=== PATIENT | female | born 1970 | race Caucasian/White ===

== ENCOUNTER 2019-10-01 01:27 | Day surgery (SDC) | payer BC, SELFPAY ==
[2019-09-17 14:16] VITALS: BMI 32.9
[2019-10-01] VITALS (9 sets, daily range): BP systolic 135–155; BP diastolic 75–87; PULSE 66–86; RESP 12–20; TEMP 36.7–37; O2SAT 94–97
--- NOTE | 2019-10-01 07:25 | WPDHPUPDATE1 ---
History and Physical Update Update Date/Time: 10/01/19 07:25 History and Physical has been reviewed, including an updated exam of the patient. There are NO changes in the patient's condition. Risks, benefits, and alternatives have been discussed and questions answered. Patient agrees to proceed with procedure.
--- NOTE | 2019-10-01 08:08 | WPDANESEPPF ---
Anes - Initial Pre Proc Eval Procedure: Operation Date: 10/01/19 09:00 Proposed Procedures p Right Knee Arthroscopy,Debride Meniscus, Synovectomy, Chondroplasty, Proceed As Indicated - Gerry Garduno MD Date/Time: 10/01/19 08:08 Surgeon: Grery Garduno MD Pre Op Diagnosis: Right Medial Meniscus Tear,Chondromalatia,Synoviti Patient Data Age: 49 Gender: F Height: 5 ft 6 in Weight: 92.53 kg Allergies Allergy/AdvReac Type Severity Reaction Status Date / Time No Known Allergies Allergy Verified 09/25/19 08:50 Home Medications Medication Instructions Recorded Confirmed Type Vitamin D3 1 tablet PO DAILY 09/17/19 09/17/19 History multivitamin 1 tablet PO DAILY 09/17/19 09/17/19 History Patient hx anesthesia problems: none Family hx anesthesia problems: none PMFSH Past Medical History Medical History Medial meniscus tear Patella-femoral syndrome Right knee pain Family History Family History Unknown Diabetes mellitus Hypertension Social History Social History Smoking status: Never smoker Gender identity (if verbalized by the patient): Female Anes - Eval Final PreProcedure Day of Procedure 10/01/19 08:08 Patient weight: obese ASA classification: II Informed Consent: The patient's anesthetic plan and its attendant risks and benefits were discussed with the patient/family/POA. Questions were solicited and answers provided to the satisfaction of the patient/family/POA.
--- NOTE | 2019-10-01 08:09 | WPDANESEPPF ---
Anes - Initial Pre Proc Eval Procedure: Operation Date: 10/01/19 09:00 Proposed Procedures p Right Knee Arthroscopy,Debride Meniscus, Synovectomy, Chondroplasty, Proceed As Indicated - Gerry Garduno MD Date/Time: 10/01/19 08:09 Surgeon: Gerry Garduno MD Pre Op Diagnosis: Right Medial Meniscus Tear,Chondromalatia,Synoviti Patient Data Age: 49 Gender: F Height: 1.68 m Weight: 92.53 kg Allergies Allergy/AdvReac Type Severity Reaction Status Date / Time No Known Allergies Allergy Verified 09/25/19 08:50 Home Medications Medication Instructions Recorded Confirmed Type Vitamin D3 1 tablet PO DAILY 09/17/19 09/17/19 History multivitamin 1 tablet PO DAILY 09/17/19 09/17/19 History Patient hx anesthesia problems: none Family hx anesthesia problems: none PMFSH Past Medical History Medical History (Updated 10/01/19 @ 08:10 by Wing Trevino MD) Medial meniscus tear Obesity Patella-femoral syndrome Right knee pain Family History Family History Unknown Diabetes mellitus Hypertension Social History Social History Smoking status: Never smoker Gender identity (if verbalized by the patient): Female Anes - Eval Final PreProcedure Day of Procedure 10/01/19 08:09 Patient weight: obese Heart: regular rate and rhythm Lungs: clear to auscultation and normal air movement Airway: Mallampati scale class II Neurological: alert and oriented Last oral intake: >/= 8 hours ASA classification: II Emergent: no Anesthetic plan: proceed Anesthesia type and monitoring: general LMA Informed Consent: The patient's anesthetic plan and its attendant risks and benefits were discussed with the patient/family/POA. Questions were solicited and answers provided to the satisfaction of the patient/family/POA.
[2019-10-01] MEDS: LACTATED RINGERS 1,000 ML 30 ML IV CONT ×2 (08:18→12:01)
[2019-10-01] MEDS: IBUPROFEN IV 800 MG/200 ML 800 MG/200 ML BAG 400 MG IVPB (08:20)
[2019-10-01] MEDS: ceFAZolin 2 GM/D5W 50 ML 2 GM/50 ML BAG IVPB (09:23)
[2019-10-01] MEDS: ONDANSETRON INJ 4 MG/2 ML VIAL IV PUSH (10:59)
--- NOTE | 2019-10-01 11:13 | PM.PROC ---
Procedure Note - Detailed Date of procedure: 10/01/19 Pre-op diagnosis: Right Medial Meniscus Tear,Chondromalatia,Synoviti Right knee medial and lateral meniscus tear, synovitis, chondromalacia Post-op diagnosis: same Procedure performed: Right knee arthroscopy with partial meniscectomy of medial and lateral meniscus, synovectomy, chondroplasty patellofemoral, lateral and medial compartments. Description of procedure: Indications: 49-year-old woman with severe right knee pain, worse with weight-bearing and activity. Unrelieved with home exercises, physical therapy, knee brace, injections. MRI demonstrates medial and lateral meniscus tear as well as degenerative changes, effusion, popliteal cyst and synovitis. Informed consent given by patient. Operative extremity marked in preoperative holding area. Patient received intravenous antibiotics. Patient brought to operating room and underwent general anesthetic by anesthesia team. Positioned supine on operating room table. Right leg placed into a posterior thigh leg [place]. Foot of the table dropped to 90? and left leg padded out of the field. Time-out performed confirming patient, site of surgery and plan. Right knee prepped and draped in usual sterile surgical fashion using ChloraPrep skin solution. Standard arthroscopic portals made by using a 11 blade knife for the anterior lateral portal 1st. Capsule penetrated bluntly. Camera and inflow started. The below operative findings noted. Intra-articular visualization used to position the anterior medial portal using 22 gauge spinal needle. A 11 blade knife used for the skin and blunt penetration of the capsule. 4.7 millimeter arthroscopic shaver introduced and partial medial meniscectomy of the loose and torn portion performed. Shaver then positioned in the lateral compartment and partial lateral meniscectomy performed. Edge of meniscus completed with arthroscopic Wand. Shaver introduced into the posterior capsule and the popliteal cyst able to be evacuated with suction. Arthroscopic Wand used to perform chondroplasty of the patellofemoral articulation and the medial and lateral femoral condyle. Shaver reintroduced and a synovectomy performed of the anterior fat pad and extensive synovium as well as medial and lateral plica. Bleeding points coagulated with Wand. Knee inspected, no loose pieces noted. 1 liter of irrigant infused and suction out. Arthroscopic cannulas removed. Skin closed with 4 nylon interrupted suture. Local anesthetic with 0.25% Marcaine. Sterile dressing applied. Patient awoken from anesthesia, extubated and taken to recovery room in stable condition. All sponge needle and instrument counts correct at the end of the case. Anesthesia: GLMA Surgeon: Gerry Garduno MD Estimated blood loss (mL): 5 Drains: No Packing: No Pathology: none sent Complications: None Condition: stable Disposition: PACU Findings: Right knee with complex tear posterior horn medial meniscus extending to the medial root. Complex tear posterior horn lateral meniscus. ACL/PCL intact. Extensive synovitis anterior medial anterolateral compartments, peripatellar and suprapatellar compartments. Grade 3 chondromalacia medial patellar facet, grade 2 chondromalacia lateral patellar facet. Grade 3 chondromalacia femoral trochlea. Grade 3 chondromalacia medial femoral condyle central portion. Grade 2 chondromalacia lateral femoral condyle.
[2019-10-01] MEDS: SCOPOLAMINE 1.5 MG PATCH TRANSDERM (11:27)
[2019-10-01] MEDS: HALOPERIDOL LACTATE 5 MG/ML VIAL 1 MG IV PUSH (11:40)
--- NOTE | 2019-10-01 11:52 | SUR.PHASEI ---
SPOUSE JOE UPDATED RE:PT CONDITION
== END 2019-10-01 13:50 | disposition home or self-care (01) ==
PROVIDERS: Visit Provider Orthopaedic Surgery
PROC: (CPT 29870; principal; 2019-10-01 09:00)
DX: M23.331 Other meniscus derangements, other medial meniscus, right knee (principal); M23.361 Other meniscus derangements, other lateral meniscus, right knee; M94.261 Chondromalacia, right knee; M65.861 Other synovitis and tenosynovitis, right lower leg
CPT/HCPCS: 29880; A9270; J0360; J0690; J1100; J1630; J1741; J2250; J2405; J2704; J3010; J7120

== ENCOUNTER 2021-01-12 08:30 | Outpatient (CLI) | payer BC, SELFPAY ==
[2021-01-12 08:52] LABS: Basophils Percent Auto 0.7 % (0.2-1.2); Eosinophils Absolute Auto 0.2 K/mm3 (0-0.3); Eosinophils Percent Auto 4.3 % (0-4.4); Hematocrit 43.5 % (37.0-47.0); Hemoglobin 14.6 g/dL (12.0-15.0); Immature Granulocyte Absolute 0.01 K/mm3 (0.00-0.031); Immature Granulocyte Percent A 0.2 % (0-0.5); Lymphocytes Percent Auto 26.1 % (18.3-44.2); Mean Corpuscular HGB Conc 33.6 g/dl (32-36); Mean Corpuscular Volume 89.5 fl (80-100); Mean Platelet Volume 9.6 fl (7.4-10.4); Monocytes Absolute Auto 0.4 K/mm3 (0.1-0.6); Monocytes Percent Auto 7.6 % (2.6-8.5); Neutrophils Absolute Auto 3.3 K/mm3 (1.3-6.7); Neutrophils Percent Auto 61.1 % (45.5-73.1); Platelet Count Result 186 k/mm3 (150-375); Red Blood Count 4.86 M/mm3 (4.2-5.4); Red Cell Distribution Width 12.7 % (11.5-14.5); White Blood Count 5.4 K/mm3 (4.5-10.0)
[2021-01-12 08:55] LABS: Add Urine Microscopic? NO; Appearance Urine Clear (Clear); Bilirubin Urine Negative (Negative); Blood Urine Negative (Negative); Color Urine Yellow (Yellow); Glucose Urine UA Negative (Negative); Ketones Urine Negative (Negative); Leukocyte Esterase Ur Negative LEU/UL (NEGATIVE); Nitrate Urine Negative (Negative); Protein Urine Negative (Negative); Specific Grav Ur 1.009 (1.001-1.035); Urobilinogen Urine Negative mg/dL (<2.0)
[2021-01-12 09:06] LABS: Alanine Aminotransferase 15 U/L (4-35); Albumin Level 4.4 g/dL (3.5-5.1); Alkaline Phosphatase 73 U/L (38-126); Anion Gap 5 mmol/L (8-16); Aspartate Amino Transferase 26 U/L (14-36); Bilirubin,Total 0.5 mg/dL (0.2-1.3); Blood Urea Nitrogen 12 mg/dL (7-17); Calcium 9.3 mg/dL (8.4-10.2); Carbon Dioxide 30 mmol/L (22-30); Chloride 105 mmol/L (98-107); Cholesterol 117 mg/dL (0-200); Estimated Glomerular Filt Rate > 60; Glucose 90 mg/dL (65-105); HDL Direct 59 mg/dL; Potassium 3.9 mmol/L (3.4-5.0); Sodium 140 mmol/L (137-145); Triglycerides 58 mg/dL (<150)
[2021-01-12 09:13] LABS: LDL Cholesterol Direct 49 mg/dL
[2021-01-12 09:34] LABS: Vitamin D 25 Hydroxy 68.4 ng/mL
[2021-01-12 09:52] LABS: Hemoglobin A1C 5.3 % (<5.7)
[2021-01-12 10:09] LABS: Folic Acid > 20.0 ng/mL (2.76->20)
== END 2021-01-12 08:31 | disposition home or self-care (01) ==
PROVIDERS: PCP Nurse Practitioner Family; Visit Provider Nurse Practitioner Family
DX: Z00.00 Encounter for general adult medical examination without abnormal findings (principal); E55.9 Vitamin D deficiency, unspecified; Z68.32 Body mass index [BMI] 32.0-32.9, adult
CPT/HCPCS: 36415; 80053; 80061; 81003; 82306; 82607; 82746; 83036; 84443; 85025

== ENCOUNTER → 2021-07-13 09:57 | Outpatient (CLI) | payer BC, SELFPAY ==
--- NOTE | ~2021-07-13 | MM_ITS ---
EXAMINATION: MM screening belinda BI w tawny HISTORY: Screening mammogram TECHNIQUE: Craniocaudal and mediolateral oblique 3-D tomosynthesis images were obtained and synthetic 2-D images were generated. CAD analysis was submitted and interpreted. COMPARISON: No prior mammogram is available for comparison at this institution. BREAST PARENCHYMAL COMPOSITION: The breasts are heterogeneously dense, which may obscure small masses . FINDINGS: RIGHT BREAST: There is possible architectural distortion in the middle third of the upper outer quadr ant of the breast. LEFT BREAST: There is no evidence of suspicious mass, calcification, or architectural distortion to s uggest malignancy. IMPRESSION: 1. Possible right breast architectural distortion which may represent the patient's baseline however no comparison is currently available. 2. Comparison with prior mammograms is necessary. BI-RADS Category 0: Incomplete: Needs comparison with prior mammograms. Reviewed, dictated and finalized at location A. INFRASTRUCTURE ARCHITECT IMPRESSION: 1. Possible right breast architectural distortion which may represent the patie nt's baseline however no comparison is currently available. 2. Comparison with prior mammograms is necessary. BI-RADS Category 0: Incomplete: Needs comparison with prior mammograms.
== END ==
PROVIDERS: PCP Nurse Practitioner Family; Visit Provider Nurse Practitioner Family
DX: Z12.31 Encounter for screening mammogram for malignant neoplasm of breast (principal); R92.8 Other abnormal and inconclusive findings on diagnostic imaging of breast
CPT/HCPCS: 77063; 77067

== ENCOUNTER 2022-09-13 08:14 | Outpatient (CLI) | payer BC, SELFPAY ==
[2022-09-13 08:33] LABS: Appearance Urine Clear (Clear); Bilirubin Urine Negative (Negative); Blood Urine Negative (Negative); Color Urine Yellow (Yellow); Glucose Urine UA Negative (Negative); Ketones Urine Negative (Negative); Leukocyte Esterase Ur Negative LEU/UL (NEGATIVE); Nitrate Urine Negative (Negative); Protein Urine Negative (Negative); Specific Grav Ur 1.015 (1.001-1.035); Urobilinogen Urine 0.2 mg/dL (<2.0)
[2022-09-13 08:34] LABS: Basophils Absolute Auto 0.1 K/mm3 (0.0-0.1); Basophils Percent Auto 1.6 % (0.2-1.2); Eosinophils Absolute Auto 0.3 K/mm3 (0-0.3); Eosinophils Percent Auto 6.9 % (0-4.4); Hematocrit 43.8 % (37.0-47.0); Hemoglobin 14.6 g/dL (12.0-15.0); Immature Granulocyte Absolute 0.01 K/mm3 (0.00-0.031); Immature Granulocyte Percent A 0.3 % (0-0.5); Lymphocytes Absolute Auto 1.56 K/mm3 (0.9-3.2); Lymphocytes Percent Auto 42.9 % (18.3-44.2); Mean Corpuscular HGB Conc 33.3 g/dl (32-36); Mean Corpuscular Hemoglobin 31.3 pg (26-34); Mean Corpuscular Volume 93.8 fl (80-100); Mean Platelet Volume 8.9 fl (7.4-10.4); Monocytes Absolute Auto 0.3 K/mm3 (0.1-0.6); Monocytes Percent Auto 7.4 % (2.6-8.5); Neutrophils Absolute Auto 1.5 K/mm3 (1.3-6.7); Neutrophils Percent Auto 40.9 % (45.5-73.1); Platelet Count Result 175 k/mm3 (150-375); Red Blood Count 4.67 M/mm3 (4.2-5.4); Red Cell Distribution Width 11.9 % (11.5-14.5); White Blood Count 3.6 K/mm3 (4.5-10.0)
[2022-09-13 08:35] LABS: Bacteria Urine Trace /hpf; Mucus Urine Rare /lpf; RBC Urine 0-2 /hpf (0-2); Squamous Epithelial Cell Urine Rare /hpf (Few); WBC Urine 0-3 /hpf (0-3)
[2022-09-13 08:39] LABS: Add Urine Microscopic? YES
[2022-09-13 08:57] LABS: Alanine Aminotransferase 16 U/L (6-35); Albumin Level 4.4 g/dL (3.5-5.1); Alkaline Phosphatase 69 U/L (38-126); Anion Gap 7 mmol/L (8-16); Aspartate Amino Transferase 26 U/L (14-36); Bilirubin,Total 0.5 mg/dL (0.2-1.3); Blood Urea Nitrogen 15 mg/dL (7-17); Carbon Dioxide 30 mmol/L (22-30); Chloride 103 mmol/L (98-107); Cholesterol 178 mg/dL (0-200); Estimated Glomerular Filt Rate > 60; Glucose 89 mg/dL (65-110); HDL Direct 85 mg/dL; Sodium 140 mmol/L (137-145); Triglycerides 56 mg/dL (<150)
[2022-09-13 09:12] LABS: LDL Cholesterol Direct 70 mg/dL
[2022-09-13 10:12] LABS: Folic Acid 17.7 ng/mL (2.76->20)
[2022-09-13 12:32] LABS: Vitamin D 25 Hydroxy 70.6 ng/mL
== END 2022-09-13 08:15 | disposition home or self-care (01) ==
LOC: ANHLAB 08:15
PROVIDERS: PCP Family Medicine; Visit Provider Nurse Practitioner Family
DX: Z00.00 Encounter for general adult medical examination without abnormal findings (principal); Z13.29 Encounter for screening for other suspected endocrine disorder; E55.9 Vitamin D deficiency, unspecified; Z13.0 Encounter for screening for diseases of the blood and blood-forming organs and certain disorders involving the immune mechanism; Z13.6 Encounter for screening for cardiovascular disorders
CPT/HCPCS: 36415; 80053; 80061; 81001; 82306; 82607; 82746; 84443; 85025

== ENCOUNTER → 2022-10-02 08:20 | Outpatient (CLI) | payer BC, SELFPAY ==
--- NOTE | ~2022-10-02 | US_ITS ---
EXAMINATION: US soft tissue LE LT DATE: 10/02/2022 08:34 INDICATION: Left lower limb pain and swelling. TECHNIQUE: Multiple grayscale and Doppler ultrasound images of the left lower limb were obtained. COMPARISON: None FINDINGS: There are patent varicose veins in the patient's area of concern in the medial left lower l eg. No abnormal mass. IMPRESSION: 1. Patent varicose veins in the patient's area of concern in the medial left lower leg. Reviewed, dictated and finalized at location A. INSURANCE AGENT IMPRESSION: 1. Patent varicose veins in the patient's area of concern in the medial left lo wer leg.
== END ==
PROVIDERS: PCP Nurse Practitioner Family; Visit Provider Nurse Practitioner Family
DX: M79.605 Pain in left leg (principal)
CPT/HCPCS: 76882

== ENCOUNTER 2022-10-16 08:14 | Outpatient (CLI) | payer BC, SELFPAY ==
[2022-10-16 08:47] LABS: Basophils Absolute Auto 0.1 K/mm3 (0.0-0.1); Basophils Percent Auto 1.5 % (0.2-1.2); Eosinophils Absolute Auto 0.2 K/mm3 (0-0.3); Eosinophils Percent Auto 5.2 % (0-4.4); Hematocrit 42.2 % (37.0-47.0); Hemoglobin 14.5 g/dL (12.0-15.0); Lymphocytes Absolute Auto 1.68 K/mm3 (0.9-3.2); Lymphocytes Percent Auto 41.4 % (18.3-44.2); Mean Corpuscular HGB Conc 34.4 g/dl (32-36); Mean Corpuscular Hemoglobin 31.2 pg (26-34); Mean Corpuscular Volume 90.8 fl (80-100); Mean Platelet Volume 8.7 fl (7.4-10.4); Monocytes Absolute Auto 0.3 K/mm3 (0.1-0.6); Monocytes Percent Auto 7.4 % (2.6-8.5); Neutrophils Absolute Auto 1.8 K/mm3 (1.3-6.7); Neutrophils Percent Auto 44.5 % (45.5-73.1); Platelet Count Result 183 k/mm3 (150-375); Red Blood Count 4.65 M/mm3 (4.2-5.4); Red Cell Distribution Width 11.7 % (11.5-14.5); White Blood Count 4.1 K/mm3 (4.5-10.0)
== END 2022-10-16 08:15 | disposition home or self-care (01) ==
PROVIDERS: PCP Nurse Practitioner Family; Visit Provider Nurse Practitioner Family
DX: D72.819 Decreased white blood cell count, unspecified (principal)
CPT/HCPCS: 36415; 85025

== ENCOUNTER → 2022-11-27 10:43 | Outpatient (CLI) | payer BC, SELFPAY ==
--- NOTE | ~2022-11-27 | MM_ITS ---
EXAMINATION: MM screening belinda BI w tawny HISTORY: Screening mammogram TECHNIQUE: Craniocaudal and mediolateral oblique 3-D tomosynthesis images were obtained and synthetic 2-D images were generated. CAD analysis was submitted and interpreted. COMPARISON: 07/13/2021, 12/24/2017, 01/13/2016 bilateral screening mammogram examinations BREAST PARENCHYMAL COMPOSITION: The breasts are heterogeneously dense, which may obscure small masses . FINDINGS: There is no evidence of suspicious mass, calcification, or architectural distortion to sugg est malignancy in either breast. There has been no suspicious interval change. IMPRESSION: 1. No mammographic evidence of malignancy. 2. Recommend routine screening mammography in one year. BI-RADS Category 1: Negative Reviewed, dictated and finalized at location A.
== END ==
PROVIDERS: PCP Nurse Practitioner Family; Visit Provider Nurse Practitioner Family
DX: Z12.31 Encounter for screening mammogram for malignant neoplasm of breast (principal)
CPT/HCPCS: 77063; 77067

== ENCOUNTER 2023-02-21 01:13 | Day surgery (SDC) | payer BC, SELFPAY ==
[2023-02-08 14:44] VITALS: BMI 26.2
--- NOTE | 2023-02-20 15:55 | PM.HPGS ---
History of Present Illness History of Present Illness Consent: Risks, benefits, and alternatives have been discussed and questions answered. Patient agrees to proceed with procedure. Chief complaint: neoplasm screening Narrative: Maryan Dorsey is a 52 year old female Referred for colon cancer screening. Review of Systems Review of Systems: All systems reviewed & are unremarkable except as noted in HPI and below PMFSH Past Medical History Medical History Bilateral knee pain BMI 25.0-25.9,adult BMI 32.0-32.9,adult Breast cancer screening Cat bite Colon cancer screening Elevated blood pressure reading without diagnosis of hypertension Encounter to establish care Medial meniscus tear Obesity Patella-femoral syndrome Right knee pain Tenderness of left lower extremity Vitamin D deficiency Surgical History Surgical History Hx of arthroscopic knee surgery Family History Family History Mother Hypertension Depression Father Diabetes mellitus Hypertension Thyroid disease Sibling Depression Grandparent Cancer Social History Social History Smoking status: Never smoker Alcohol intake: never Substance use: never Substance use type: does not use Living arrangements: with family Gender identity (if verbalized by the patient): Female Spiritual care concerns: No Meds Home Medications and Allergies Home Medications Medication Instructions Recorded Confirmed Type Vitamin D3 1 tablet PO DAILY 09/17/19 02/21/23 History multivitamin 1 tablet PO DAILY 09/17/19 02/21/23 History mecobalamin (vitamin B12) 1,000 1,000 mcg PO DAILY 02/08/23 02/21/23 History mcg chewable tablet Allergies Allergy/AdvReac Type Severity Reaction Status Date / Time No Known Allergies Allergy Verified 02/21/23 07:49 Exam Const: General: alert Orientation/consciousness: patient oriented x3 Resp: Auscultation: clear to auscultation bilaterally Cardio: Rhythm: regular rhythm GI: GI Palp: Yes Soft to palpation and No Tenderness to palpation present (GI) Neuro: General: patient oriented x3 Assessment and Plan Assessment and plan (1) Colon cancer screening: Code(s): Z12.11 - Encounter for screening for malignant neoplasm of colon Status: Acute Assessment and Plan: Colonoscopy with possible biopsy or polypectomy or cautery or injection of substances.
[2023-02-21 07:54] VITALS: BP 118/75; PULSE 65; RESP 16; TEMP 36.3; O2SAT 100
[2023-02-21] MEDS: LACTATED RINGERS 1,000 ML 150 ML IV CONT (08:12)
[2023-02-21 09:20] VITALS: BP 108/62; PULSE 57; RESP 18; O2SAT 100
[2023-02-21 09:30] VITALS: BP 103/61; PULSE 56; RESP 14; O2SAT 100
[2023-02-21 09:40] VITALS: BP 117/40; PULSE 51; RESP 19; O2SAT 100
== END 2023-02-21 09:46 | disposition home or self-care (01) ==
PROVIDERS: PCP Nurse Practitioner Family; Visit Provider Internal Medicine Gastroenterology
PROC: 0DJD8ZZ Inspection of Lower Intestinal Tract, Via Natural or Artificial Opening Endoscopic (ICD-10-PCS; CPT 45378; principal; 2023-02-21 09:00)
DX: Z12.11 Encounter for screening for malignant neoplasm of colon (principal); K57.30 Diverticulosis of large intestine without perforation or abscess without bleeding; E55.9 Vitamin D deficiency, unspecified
CPT/HCPCS: 45378; J2704; J7120

== ENCOUNTER 2024-02-11 07:45 | Outpatient (CLI) | payer BC, SELFPAY ==
[2024-02-11 08:33] LABS: Basophils Absolute Auto 0.1 K/mm3 (0.0-0.1); Basophils Percent Auto 1.6 % (0.2-1.2); Eosinophils Absolute Auto 0.3 K/mm3 (0-0.3); Eosinophils Percent Auto 9.1 % (0-4.4); Hematocrit 43.8 % (37.0-47.0); Hemoglobin 14.4 g/dL (12.0-15.0); Lymphocytes Absolute Auto 1.64 K/mm3 (0.9-3.2); Lymphocytes Percent Auto 43.7 % (18.3-44.2); Mean Corpuscular HGB Conc 32.9 g/dl (32-36); Mean Corpuscular Hemoglobin 31.1 pg (26-34); Mean Corpuscular Volume 94.6 fl (80-100); Mean Platelet Volume 9.6 fl (7.4-10.4); Monocytes Absolute Auto 0.3 K/mm3 (0.1-0.6); Monocytes Percent Auto 6.9 % (2.6-8.5); Neutrophils Absolute Auto 1.5 K/mm3 (1.3-6.7); Neutrophils Percent Auto 38.7 % (45.5-73.1); Platelet Count Result 192 k/mm3 (150-375); Red Blood Count 4.63 M/mm3 (4.2-5.4); Red Cell Distribution Width 11.9 % (11.5-14.5); White Blood Count 3.8 K/mm3 (4.5-10.0)
[2024-02-11 08:35] LABS: Appearance Urine Clear (Clear); Blood Urine Negative (Negative); Color Urine Yellow (Yellow); Glucose Urine UA Negative (Negative); Ketones Urine Negative (Negative); Protein Urine Negative (Negative); Specific Grav Ur 1.013 (1.001-1.035); pH Urine 6.5 (5.0-9.0)
[2024-02-11 08:36] LABS: Bilirubin Urine Negative (Negative); Leukocyte Esterase Ur Negative LEU/UL (Negative); Nitrate Urine Negative (Negative); Urobilinogen Urine 0.2 mg/dL (<2.0)
[2024-02-11 08:49] LABS: Alanine Aminotransferase 12 U/L (6-35); Albumin Level 4.4 g/dL (3.5-5.1); Alkaline Phosphatase 78 U/L (38-126); Anion Gap 5 mmol/L (4-12); Aspartate Amino Transferase 27 U/L (14-36); Bilirubin,Total 0.6 mg/dL (0.2-1.3); Blood Urea Nitrogen 22 mg/dL (7-17); Calcium 9.1 mg/dL (8.4-10.2); Carbon Dioxide 28 mmol/L (22-30); Chloride 105 mmol/L (98-107); Cholesterol 182 mg/dL (0-200); Estimated Glomerular Filt Rate > 60; Glucose 77 mg/dL (65-110); HDL Direct 94 mg/dL; Potassium 3.9 mmol/L (3.4-5.0); Sodium 138 mmol/L (137-145); Triglycerides 64 mg/dL (<150)
[2024-02-11 08:59] LABS: Add Urine Microscopic? NO
[2024-02-11 09:00] LABS: LDL Cholesterol Direct 77 mg/dL
[2024-02-11 09:41] LABS: Vitamin B12 > 1000.0 pg/mL (239-931)
== END 2024-02-11 07:46 | disposition home or self-care (01) ==
LOC: ANHLAB 07:47
PROVIDERS: PCP Nurse Practitioner Family; Visit Provider Nurse Practitioner Family
DX: Z00.00 Encounter for general adult medical examination without abnormal findings (principal); Z13.29 Encounter for screening for other suspected endocrine disorder; Z13.0 Encounter for screening for diseases of the blood and blood-forming organs and certain disorders involving the immune mechanism; E55.9 Vitamin D deficiency, unspecified; E53.8 Deficiency of other specified B group vitamins; Z13.6 Encounter for screening for cardiovascular disorders
CPT/HCPCS: 36415; 80053; 80061; 81003; 82306; 82607; 84443; 85025

== ENCOUNTER 2024-05-06 10:17 | Outpatient (CLI) | payer BC, SELFPAY ==
--- NOTE | ~2024-05-06 | MM_ITS ---
EXAMINATION: MM screening belinda BI w tawny HISTORY: Screening mammogram TECHNIQUE: Craniocaudal and mediolateral oblique 3-D tomosynthesis images were obtained and synthetic 2-D images were generated. CAD analysis was submitted and interpreted. COMPARISON: 11/27/2022, 07/13/2021 BREAST PARENCHYMAL COMPOSITION:Dense: The breasts are heterogeneously dense, which may obscure small masses. FINDINGS: No suspicious mass, calcification, or architectural distortion are identified in either arsenio ast to suggest malignancy. There has been no suspicious interval change. IMPRESSION: No mammographic evidence of malignancy. Recommend routine screening mammography in one year. BI-RADS Category 1: Negative Reviewed, dictated and finalized at location .
== END 2024-05-06 10:18 | disposition home or self-care (01) ==
LOC: MICIMG 10:18
PROVIDERS: PCP Nurse Practitioner Family; Visit Provider Nurse Practitioner
DX: Z12.31 Encounter for screening mammogram for malignant neoplasm of breast (principal)
CPT/HCPCS: 77063; 77067

== ENCOUNTER 2025-08-16 14:57 | Outpatient (CLI) | payer BC, SELFPAY ==
--- NOTE | ~2025-08-16 | MM_ITS ---
EXAMINATION: MM screening belinda BI w tawny HISTORY: Screening. TECHNIQUE: Craniocaudal and mediolateral oblique 3-D tomosynthesis images were obtained and synthetic 2-D images were generated. CAD analysis was submitted and interpreted. COMPARISON: 2023, 2022, and 2020. BREAST PARENCHYMAL COMPOSITION: Dense: The breasts are heterogeneously dense, which may obscure small masses. FINDINGS: No suspicious masses are seen. There are no suspicious calcifications. No unexplained architectural distortion is seen. There are no skin or nipple abnormalities identified. There is no adenopathy seen on the images submitted. IMPRESSION: No mammographic evidence to suggest malignancy is seen. The patient may return to screening mammography as per ACR guidelines. BI-RADS 1 - Negative. Reviewed, dictated and finalized at location A. ER SWEEP
== END 2025-08-16 14:58 | disposition home or self-care (01) ==
LOC: MICIMG 14:58
PROVIDERS: PCP Nurse Practitioner Family; Visit Provider Obstetrics & Gynecology Gynecology
DX: Z12.31 Encounter for screening mammogram for malignant neoplasm of breast (principal)
CPT/HCPCS: 77063; 77067